=== PATIENT | male | born 1955 | race Caucasian/White ===

== ENCOUNTER → 2016-06-19 | Outpatient (CLI) | payer BC ==
[~2016-06-19] MED LIST: DEXT-10 PO; DEXT1CAP PO; GADAVIST IV PRN
--- NOTE | 2016-06-19 09:12 | DIAGNOSTIC IMAGING REPORT ---
MRI brain combination BRAIN COMBO FOR IAC CLINICAL HISTORY: LEFT ASYMMETRICAL HEARING LOSS hearing loss TECHNIQUE: MRI multi axial acquisition COMPARISON STUDY: None FINDINGS: Diffusion-weighted images show no evidence for an acute ischemic event. Signal characteristics of the cerebellar as well as cerebral hemispheres are unremarkable. Ventricular system is midline. Postcontrast images are considered negative for an enhancing lesion. Internal artery canals are symmetric. Sella and parasellar regions are unremarkable. IMPRESSION: Negative study Electronically signed by: Curtis Menezes M.D. 06/19/2016 9:11 AM Dictated Date/Time: 06/19/2016 9:07 AM
== END | disposition home or self-care (01) ==
LOC: C.OPENMRI 07:55
DX: H91.8X2 Other specified hearing loss, left ear (principal)

== ENCOUNTER → 2017-05-15 | Day surgery (SDC) | payer OTHER ==
[2017-05-10 15:25] LABS: BASO % 0.5 %; BASO ABS # 0.04 K/uL (0-0.2); EOS % 4.1 %; EOS ABS # 0.32 K/uL (0-0.5); HEMATOCRIT 45.6 % (42-52); HEMOGLOBIN 15.8 g/dL (14.0-18.0); IG# 0.03 K/uL (0.00-0.02); LYMPH % 31.3 %; LYMPH ABS # 2.44 K/uL (1.2-3.4); MEAN CELL VOLUME 89.6 fL (80-100); MEAN CORPUSCULAR HGB CONC 34.6 g/dl (32-36); MEAN PLATELET VOLUME 11.9 fL (7.4-10.4); MONO % 8.2 %; MONO ABS # 0.64 K/uL (0.11-0.59); NEUT % 55.5 %; NEUT ABS # 4.33 K/uL (1.4-6.5); PLATELET COUNT 166 K/uL (130-400); RED CELL DISTRIBUTION WIDTH CV 13.8 % (11.5-14.5); RED CELL DISTRIBUTION WIDTH SD 45.3 fL (36.4-46.3)
[2017-05-10 15:44] LABS: POTASSIUM 3.7 mmol/L (3.5-5.1)
[2017-05-11 07:34] VITALS: BMI 42.0
[2017-05-14 10:05] VITALS: Ht 180.3 cm; Wt 137.0 kg
--- NOTE | 2017-05-14 10:23 | PAT Medication Instructions ---
Service Date May 14, 2017. Current Home Medication List Fish Oil (Whiteford-3), 1 CAP PO QAM Indapamide (Lozol), 1.25 MG PO QAM Medication Instructions For Your Scheduled Surgery - Hold the following medications the morning of surgery: Fish Oil (Whiteford-3), 1 CAP PO QAM Indapamide (Lozol), 1.25 MG PO QAM If you have any questions please call us at [phone] or [phone] or [phone]
[2017-05-14 11:17] LABS: CALCIUM 9.8 mg/dl (8.5-10.1); CREATININE 0.95 mg/dl (0.60-1.40); POTASSIUM 3.7 mmol/L (3.5-5.1)
[~2017-05-15] VITALS: Ht 180.3 cm; Wt 137.0 kg
[~2017-05-15] MED LIST changes: +ATROPINE SULFATE 0.1 MG/ML 5ML SYR IV PRN; +BUPIVACAINE 0.5 % 5 MG/1 ML PF 10ML VIAL ONE; +CEFAZOLIN 3000MG IV PUSH 15 ML IV SCH; -DEXT-10 PO; -DEXT1CAP PO; +EpHEDrine SULFATE INJ 50 MG/ML AMP IV PRN; +FENTANYL CITRATE INJ 50 MCG/1 ML 2 ML VIAL ONE; -GADAVIST IV PRN; +HYDROmorphone INJ 1 MG/ML SYR IV PRN; +LACTATED RINGER'S 1000ML 1,000 ML IV SCH; +LIDOCAINE HCL 2% 2 ML VIAL (20MG/ML) ONE; +LZL/125 PO; +MIDAZOLAM HCL 1 MG/ML 2ML VIAL ONE; +OMEG10007 PO; +ONDANSETRON INJ 2 MG/ML 2 ML VIAL IV PRN; +ONDANSETRON INJ 2 MG/ML 2 ML VIAL ONE; +OXYCODONE/ACETAMINOPHEN 5-325 TAB PO PRN; +PROMETHAZINE HCL INJ 12.5 MG in SODIUM CHLORIDE 0.9% 50ML 50 ML IV PRN; +PROPOFOL IV EMULSION 10 MG/ML 20 ML VIAL IV ONE; +SODIUM CHLORIDE 0.9% 1000ML 1,000 ML IV SCH; +TRAM-10 PO
--- NOTE | 2017-05-15 08:36 | [facility] Post Operative Brief Note ---
Immediate Operative Summary Operative Date May 15, 2017. Pre-Operative Diagnosis Right knee bursitis and bone spur Post-Operative Diagnosis Same Procedure(s) Performed Right Knee Prepatellar Bursa And Bone Spur Excision Surgeon Dr. Bowser Spring Fitter Helper Surgeon(s) Sada Sheets PA-C Estimated Blood Loss 5ml Findings Consistent with Post-Op Diagnosis Specimens A. specimen from the anterior patella right knee Anesthesia Type General Disposition Disposition: Recovery Room / PACU
--- NOTE | 2017-05-15 08:43 | Discharge Instructions-SurgCtr ---
Discharge Instructions Date of Service May 15, 2017. Visit Reason for Visit: Right Knee Prepatellar Bursa And Bone Spur Discharge Discharge Diagnosis / Problem: SAME ABOVE Discharge Goals Goal(s): Decrease discomfort, Improve function Activity Recommendations Activity Limitations: as noted below Lifting Limitations: gradually increase as tolerated Exercise/Sports Limitations: until after follow-up appointment Shower/Bathe: keep incision dry Anesthesia . Post Anesthesia Instructions: If you have had General Anesthesia or IV Sedation: * Do not drive today. * Resume driving when surgeon permits. * Do not make important decisions or sign legal documents today. * Call surgeon for: 1. Temperature elevations greater than 101 degrees F. 2. Uncontrollable pain. 3. Excessive bleeding. 4. Persistent nausea and vomiting. 5. Medication intolerance (nausea, vomiting or rash). * For nausea and vomiting use only clear liquids such as: tea, soda, bouillon until nausea subsides, then gradually increase diet as tolerated. * If you have any concerns or questions, call your surgeon's office. If physician is unavailable and it is an emergency, call 911 or go to the nearest emergency room. . Instructions / Follow-Up Instructions / Follow-Up MEDICATIONS: * Resume previous medications unless instructed otherwise by your surgeon. * Always take pain medication on a full stomach or with food to avoid upset stomach. * Do not drink alcohol or drive while taking narcotics. * Ibuprofen or Tylenol may be taken if narcotic not needed. SPECIAL CARE INSTRUCTIONS: __ None _X_ Keep extremity elevated and iced x 48 hours; apply ice 20-30 minutes 8-10 times/day. May remove at night. __ Crutches __ May discard when able __ Brace/Post-op shoe __ 24 hrs/day __ Remove at night _X_ Dressing _X_ Maintain until seen in office, may shower with plastic over site __ Remove dressings in 24-48 hours and then may shower __ Cover incisions with band-aids after showering __ Do not remove steri-strips Call physician if chills or temperature rises above 102 degrees or pain unrelieved by prescribed pain medications. Office [phone] Diet Recommendations Home Diet: resume previous diet Procedures Procedures Performed: Right Knee Prepatellar Bursa And Bone Spur Excision Pending Studies Studies pending at discharge: yes List of pending studies: TISSUE SAMPLE ANTERIOR KNEE Medical Emergencies . Who to Call and When: Medical Emergencies: If at any time you feel your situation is an emergency, please call 911 immediately. . Non-Emergent Contact Non-Emergency issues call your: Primary Care Provider . . "Provider Documentation" section prepared by Nemesio Sheets. .
[2017-05-15] MEDS: FENTANYL CITRATE INJ 50 MCG/1 ML 2 ML VIAL IV PRN ×3 (08:50→09:12)
--- NOTE | 2017-05-15 09:27 | OPERATIVE REPORT ---
DATE OF OPERATION: 05/15/2017 PREOPERATIVE DIAGNOSIS: Prepatellar bursitis with bone/soft tissue mass anterior aspect patella. FINAL DIAGNOSIS: Same pending path report. SURGERIES: Excision of prepatellar bursa and soft tissue mass anterior aspect right knee. SURGEON: Dr. Bowser. MANAGEMENT EXPERT: Nemesio Sheets PA-C. ANESTHESIOLOGIST: Bertha. ANESTHESIA: General. DRAINS: None. COMPLICATION: None. CONDITION: The patient tolerated the procedure well and returned to recovery in apparent satisfactory condition. INDICATIONS FOR SURGERY: Maximus is a 61-year-old male who has had prepatellar bursitis with a hard mass on the anterior aspect of his patella on x-ray. It looks to be calcium filled. It is painful, cannot kneel down, elected to have it removed. Procedure, expected outcomes, side effects were all explained in detail. PROCEDURE IN DETAIL: The patient was taken to the OR at which time he was placed supine on the table and put to sleep by anesthesia department. Examination of the right knee was performed, ligamentous rodriguez was stable. Went ahead and prepped and draped in usual sterile fashion. Began arthroscopic examination anteromedial and anterolateral portals. Skin incision was marked. Leg then was exsanguinated. An incision was made on the anterior aspect of his knee. We dissected down and removed the bursa sac. A large area of chalky material, almost either a cholesteatoma or gouty tophi was encountered. There was fluid around it. We excised and removed as much of this material as we could. The wound then was copiously irrigated. Skin was closed with interrupted 2-0 Vicryl suture. Skin shu were used on the skin edges. Placed a dressing of Xeroform, 4 x 4's, ABD, Sof-Rol and Severo bandage after Marcaine with epinephrine was placed in the skin edges. FINAL DIAGNOSIS: Will depend on path report from the pathologist. I attest to the content of the Intraoperative Record and any orders documented therein. Any exception s are noted below.
[2017-05-15 10:13] VITALS: BP 133/85; PULSE 70; TEMP 36.6; O2SAT 97
--- NOTE | 2017-05-15 10:24 | Anesthesia Progress Nt - [facility] ---
Anesthesia Post Op Note Date & Time May 15, 2017 at 10:23 Vital Signs Pain Intensity: 2 Vital Signs Past 12 Hours Date Time Temp Pulse Resp B/P (MAP) Pulse Ox O2 Delivery O2 Flow Rate FiO2 05/15/17 10:13 70 16 133/85 (101) 97 Room Air 05/15/17 09:50 65 16 124/77 (93) 97 Room Air 05/15/17 09:41 122/90 05/15/17 09:37 64 14 97 05/15/17 09:37 61 14 05/15/17 09:36 114/83 05/15/17 09:32 63 17 05/15/17 09:32 63 17 98 05/15/17 09:32 36.5 65 16 156/96 94 Room Air 05/15/17 09:31 156/96 05/15/17 09:27 71 16 87 05/15/17 09:27 73 16 05/15/17 09:26 125/86 05/15/17 09:22 61 19 05/15/17 09:22 62 19 98 05/15/17 09:21 132/78 05/15/17 09:17 58 11 98 05/15/17 09:17 58 11 05/15/17 09:16 123/89 05/15/17 09:12 73 17 05/15/17 09:12 73 17 139/92 92 05/15/17 09:07 66 20 95 05/15/17 09:07 69 20 05/15/17 09:06 68 19 05/15/17 09:06 71 19 117/80 94 05/15/17 09:02 137/96 05/15/17 09:01 73 18 97 05/15/17 09:01 71 18 05/15/17 08:56 70 16 144/95 96 05/15/17 08:56 71 16 05/15/17 08:51 75 26 05/15/17 08:51 75 26 154/89 96 05/15/17 08:46 77 17 149/97 98 05/15/17 08:46 79 17 05/15/17 08:42 148/87 05/15/17 08:41 36.3 83 16 148/87 96 Diffusion Mask 6 05/15/17 08:41 83 05/15/17 08:41 83 96 05/15/17 07:10 36.6 81 16 128/85 (99) 96 Room Air Notes Mental Status: alert / awake / arousable, participated in evaluation Pt Amnestic to Procedure: Yes Nausea / Vomiting: adequately controlled Pain: adequately controlled Airway Patency, RR, SpO2: stable & adequate BP & HR: stable & adequate Hydration State: stable & adequate Anesthetic Complications: no major complications apparent
== END | disposition home or self-care (01) ==
LOC: X.SURG 06:55
PROVIDERS: ATTEND Orthopaedic Surgery
DX: M70.41 Prepatellar bursitis, right knee (principal); I10 Essential (primary) hypertension; M1A.9XX1 Chronic gout, unspecified, with tophus (tophi)

== ENCOUNTER → 2017-06-04 | Outpatient (CLI) | payer OTHER ==
[~2017-06-04] MED LIST changes: -ATROPINE SULFATE 0.1 MG/ML 5ML SYR IV PRN; -BUPIVACAINE 0.5 % 5 MG/1 ML PF 10ML VIAL ONE; -CEFAZOLIN 3000MG IV PUSH 15 ML IV SCH; -EpHEDrine SULFATE INJ 50 MG/ML AMP IV PRN; -FENTANYL CITRATE INJ 50 MCG/1 ML 2 ML VIAL ONE; -HYDROmorphone INJ 1 MG/ML SYR IV PRN; -LACTATED RINGER'S 1000ML 1,000 ML IV SCH; -LIDOCAINE HCL 2% 2 ML VIAL (20MG/ML) ONE; -MIDAZOLAM HCL 1 MG/ML 2ML VIAL ONE; -ONDANSETRON INJ 2 MG/ML 2 ML VIAL IV PRN; -ONDANSETRON INJ 2 MG/ML 2 ML VIAL ONE; -OXYCODONE/ACETAMINOPHEN 5-325 TAB PO PRN; -PROMETHAZINE HCL INJ 12.5 MG in SODIUM CHLORIDE 0.9% 50ML 50 ML IV PRN; -PROPOFOL IV EMULSION 10 MG/ML 20 ML VIAL IV ONE; -SODIUM CHLORIDE 0.9% 1000ML 1,000 ML IV SCH
[2017-06-04 15:50] LABS: ALBUMIN 3.6 gm/dl (3.4-5.0); ALKALINE PHOSPHATASE 77 U/L (45-117); ALT/SGPT 29 U/L (12-78); AST/SGOT 19 U/L (15-37); BLOOD UREA NITROGEN 18 mg/dl (7-18); CALCIUM 9.3 mg/dl (8.5-10.1); CARBON DIOXIDE 28 mmol/L (21-32); CREATININE 1.02 mg/dl (0.60-1.40); GLUCOSE 121 mg/dl (70-99); POTASSIUM 3.4 mmol/L (3.5-5.1); SODIUM 139 mmol/L (136-145); TOTAL PROTEIN 7.4 gm/dl (6.4-8.2)
== END | disposition home or self-care (01) ==
LOC: C.LAB1850 14:25
PROVIDERS: ATTEND Orthopaedic Surgery
DX: M25.50 Pain in unspecified joint (principal); M10.9 Gout, unspecified

== ENCOUNTER → 2017-06-06 | Outpatient (CLI) | payer OTHER | LOC: C.LAB1850 07:07 | PROVIDERS: ATTEND Internal Medicine Pulmonary Disease | DX: E78.5 Hyperlipidemia, unspecified (principal) ==

== ENCOUNTER → 2017-06-22 | Outpatient (CLI) | payer OTHER ==
--- NOTE | 2017-06-22 14:03 | DIAGNOSTIC IMAGING REPORT ---
KUB CLINICAL HISTORY: R10.9 right flank pain COMPARISON STUDY: No previous studies for comparison. FINDINGS: There is no pathologic bowel dilatation. There is a left pelvic basin calcification which is felt to represent a phlebolith. Degenerative changes are present within the spine. No renal calculi are visualized. IMPRESSION: 1. No renal calculi identified 2. No evidence of pathologic bowel dilatation Electronically signed by: Sukhdev Quintero M.D. 06/22/2017 2:02 PM Dictated Date/Time: 06/22/2017 2:01 PM
== END | disposition home or self-care (01) ==
LOC: C.RAD1850 13:45
PROVIDERS: ATTEND Internal Medicine Rheumatology
DX: R10.9 Unspecified abdominal pain (principal)

== ENCOUNTER → 2017-08-27 | Outpatient (CLI) | payer OTHER | END | disposition home or self-care (01) | LOC: C.LAB1850 14:30 | PROVIDERS: ATTEND Internal Medicine Rheumatology | DX: E79.0 Hyperuricemia without signs of inflammatory arthritis and tophaceous disease (principal) ==

== ENCOUNTER → 2017-11-30 | Outpatient (CLI) | payer OTHER ==
[~2017-11-30] MED LIST changes: -TRAM-10 PO
== END | disposition home or self-care (01) ==
LOC: C.LAB1850 14:16
PROVIDERS: ATTEND Internal Medicine Rheumatology
DX: M1A.9XX0 Chronic gout, unspecified, without tophus (tophi) (principal); E79.0 Hyperuricemia without signs of inflammatory arthritis and tophaceous disease; R10.9 Unspecified abdominal pain

== ENCOUNTER 2025-04-06 11:33 | Observation (INO) ==
--- NOTE | 2025-04-06 11:57 | Emergency Department Note ---
Impression & Plan Chest pain, Shortness of breath ED Provider Note NAME: LYUBOV HE AGE: 69 SEX: M : 1955 ARRIVES VIA: Walk-In INFORMANT: Patient ED PROVIDER(S): Dennis Briones DO CHIEF COMPLAINT: Chest pain HPI: Patient is a 69-year-old male with a past medical history of prediabetes, hypertension who presents to the ER for chest pain. Has been on and off for the past 6 weeks. He notes that it feels like a pressure. Generally last for about 30 minutes. Can be with exertion or rest. Feels like he cannot take or get a full breath when it occurs. No belly pain, nausea, vomiting, or diarrhea. No dysuria, urgency, or frequency. ADDITIONAL HISTORY OBTAINED: Per HPI Chronic Medical/Social Conditions Affecting Care: Per HPI PAST MEDICAL HISTORY:See Below PAST SURGICAL HISTORY:See Below FAMILY HISTORY:See Below SOCIAL HISTORY:See Below HOME MEDICATIONS:See Below ALLERGIES:See Below VITALS:See Below PHYSICAL EXAMINATION: GENERAL: Sitting up in bed, alert, well appearing, well nourished, no distress, non-toxic EYE EXAM: normal conjunctiva. OROPHARYNX: no exudate, no erythema, lips, buccal mucosa, and tongue normal and mucous membranes are moist NECK: supple, no nuchal rigidity, no adenopathy, non-tender LUNGS: Clear to auscultation. Normal chest wall mechanics HEART: no murmurs, S1 normal and S2 normal ABDOMEN: abdomen soft, non-tender, normo-active bowel sounds, no masses, no rebound or guarding. BACK: Back is symmetrical on inspection and there is no deformity, no midline tenderness, no CVA tenderness. SKIN: no rashes and no bruising UPPER EXTREMITIES: upper extremities are grossly normal. LOWER EXTREMITIES: No pitting edema. Calves are equal bilaterally NEURO EXAM: Normal sensorium, cranial nerves II-XII grossly intact, normal speech, no gross weakness of arms, no gross weakness of legs. MEDICAL DECISION MAKING: Patient is a 69-year-old male who presents ER for above-stated complaint. IV was established and blood work was obtained. Labs show no significant leukocytosis or anemia. BMP along LFTs bilirubin was unremarkable. Troponin was negative. D-dimer was negative. Patient is a moderate risk consult and was discussed with the hospitalist for further evaluation management treatment. EKG was nondiagnostic. He was given aspirin. Updated at bedside. Consults/Care Managements Discussions: Per MDM Triage Nursing notes reviewed. Limited review of prior medical records performed Vital Signs: reviewed and remarkable for HTN Differential diagnosis: Cardiac ischemia, aortic dissection, pulmonary embolism, pneumothorax, pneumonia, pericarditis, myocarditis, esophageal rupture, GERD, cholecystitis, pancreatitis, musculoskeletal, as well as other pathologies. ER treatment provided: See below Diagnostics interpreted by me include EKG and cardiac monitoring as listed below: -Cardiac Monitoring: An order was placed for continuous cardiac monitoring. The monitor shows a rate of 70 with sinus rhythm. -ECG: Sinus bradycardia rate of 59 Left axis No PVCs QTc 388 -Laboratory studies:Interpreted by me as stated above in MDM and shown below. Imaging studies: Xrays: As interpreted by me: Portable AP upright 1 view of the chest shows no focal infiltrate CTs show: none Procedures:none Critical Care: None Past Med/Surg History Problem List (Updated 04/06/25 @ 17:00 by Dennis Briones DO) Shortness of breath (Acute) Chest pain (Acute) Chest pain Infection of prosthetic left knee joint Snoring Right knee DJD Trochanteric bursitis, right hip Pre-diabetes Morbid obesity due to excess calories Left knee DJD Rotator cuff syndrome of right shoulder Erectile dysfunction Metabolic syndrome Dyspnea Edema Dyslipidemia Gout Hypertension Allergic rhinitis Medical History (Updated 04/06/25 @ 17:00 by Dennis Briones DO) Internal carotid aneurysm History of internal jugular thrombosis (~10/2024) in s/o PICC line Basal cell carcinoma of skin Melanoma in situ Tubular adenoma Surgical History Status post left partial knee replacement S/P colonoscopy (~2017) H/O arthroscopic knee surgery H/O lumbar discectomy Family History Father Myocardial infarction Grandfather (Maternal) Myocardial infarction Grandfather (Paternal) Myocardial infarction Other Allergic rhinitis Coronary heart disease Hypertension Pulmonary fibrosis Denies family history of Ovarian cancer Prostate cancer Breast cancer Colorectal cancer Social History Smoking Status: Never smoker Second Hand Exposure: No; Do You Dip or Chew Tobacco: No; Hx Alcohol Use: Yes Alcohol type: beer and other Alcohol Intake Frequency: 2-4 x/Month Hx Substance Use: No Preferred Language: Spanish Communication Ability: Effective Behavioral Pediatrician Required: No Beliefs That Will Affect Care: None marital status: Current Living Situation: Spouse Current Living Situation Comment: Lives with current occupational status: retired Feels Safe at Home: Yes Childhood Exposure to Second-Hand Smoke: Yes Dental Care, Regularly: Yes Physical Activity Frequency: Other Physical Activity Frequency Comment: Very active lifestyle Seatbelt Use: always Sunscreen Use: Yes Assistive Devices: Glasses Allergies Allergies Allergy/AdvReac Type Severity Reaction Status Date / Time No Known Drug Allergies Allergy Verified 01/27/25 08:09 Home Meds Home Medications Medication Instructions Recorded Confirmed cholecalciferol (vitamin D3) 10 10 mcg PO DAILY 06/23/21 04/06/25 mcg (400 unit) tablet loratadine 10 mg tablet (Claritin) 10 mg PO DAILY PRN as needed 08/10/21 04/06/25 triamcinolone acetonide 55 mcg 2 spray intranasal DAILY PRN Nasal 08/10/21 04/06/25 nasal spray aerosol (Nasacort) Congestion acetaminophen 500 mg oral powder 500 mg PO Q6H PRN Pain 10/06/24 04/06/25 packet (Tylenol Extra Strength) rifampin 300 mg capsule 300 mg PO BID 10/06/24 04/06/25 amoxicillin 875 mg-potassium 1 tab PO BID 11/07/24 04/06/25 clavulanate 125 mg tablet biotin 5 mg tablet 5 mg PO DAILY 11/07/24 04/06/25 allopurinol 100 mg tablet 100 mg PO BID 04/06/25 04/06/25 indapamide 1.25 mg tablet 1.25 mg PO QAM 04/06/25 04/06/25 Previous Rx's Medication Instructions Recorded cyanocobalamin (vitamin B-12) 1,000 mcg PO DAILY #30 caps 02/23/22 1,000 mcg capsule sildenafil 50 mg tablet (Viagra) 50 mg PO DAILY PRN sexual activity 10/08/24 #20 tabs Results & Data (ED) Vital Signs Vital Signs - 24 hr 04/06/25 11:34 04/06/25 12:00 04/06/25 12:47 Temperature 36.6 C Temperature Source Temporal Artery Scan Pulse Rate 66 67 55 L Pulse Rate [Apical] Pulse Rhythm Regular Pulse Rhythm [Apical] Pulse Strength [Apical] Respiratory Rate 18 19 Respiratory Effort / Characteristics Non-Labored Spontaneous Respiratory Depth Normal Respiratory Pattern Blood Pressure 153/89 H Blood Pressure [Right Arm] Blood Pressure Mean 110 Blood Pressure Mean [Right Arm] Blood Pressure Position [Right Arm] Pulse Oximetry 95 93 Oxygen Delivery Method Room Air Room Air Sepsis Recent Fever Within 48 Hours No Sepsis New/Unexplained Change in Mental Status No Sepsis Action Taken by Nursing No Action Required 04/06/25 13:33 Temperature Temperature Source Pulse Rate Pulse Rate [Apical] 55 L Pulse Rhythm Pulse Rhythm [Apical] Regular Pulse Strength [Apical] Normal Respiratory Rate 17 Respiratory Effort / Characteristics Non-Labored Spontaneous Respiratory Depth Normal Respiratory Pattern Regular Blood Pressure Blood Pressure [Right Arm] 127/65 Blood Pressure Mean Blood Pressure Mean [Right Arm] 85 Blood Pressure Position [Right Arm] Sitting Pulse Oximetry 95 Oxygen Delivery Method Room Air Sepsis Recent Fever Within 48 Hours Sepsis New/Unexplained Change in Mental Status Sepsis Action Taken by Nursing Laboratory Data 04/06/25 11:50 04/06/25 14:36 Lab Results 04/06/25 04/06/25 Range/Units 11:50 12:54 WBC 5.77 (4.8-10.8) K/ul RBC 5.29 (4.70-6.10) M/uL Hgb 15.7 (14.0-18.0) g/dL Hct 46.3 (42.0-52.0) % MCV 87.5 (80.0-100.0) fL MCH 29.7 (25.0-34.0) pg MCHC 33.9 (32.0-36.0) g/dL RDW Std Deviation 43.8 (36.4-46.3) fL RDW Coeff of Matthew 13.8 (11.5-14.5) % Plt Count 170 (130-400) K/uL MPV 10.8 (9.4-12.4) fL Immature Gran % (Auto) 0.2 % Neut % (Auto) 56.9 % Lymph % (Auto) 29.6 % [place] % (Auto) 10.2 % Eos % (Auto) 2.4 % Baso % (Auto) 0.7 % Neut # (Auto) 3.28 (1.40-6.50) K/uL Lymph # (Auto) 1.71 (1.20-3.40) K/uL [place] # (Auto) 0.59 (0.11-0.59) K/uL Eos # (Auto) 0.14 (0.00-0.50) K/uL Baso # (Auto) 0.04 (0.00-0.20) K/uL Immature Gran # (Auto) 0.01 (0.01-0.20) K/uL D-Dimer Cancelled 230 Sodium 140 (136-145) mmol/L Potassium TNP Chloride 107 (98-107) mmol/L Carbon Dioxide 26 (21-32) mmol/L Anion Gap 7 (3-11) BUN 21 (6-23) mg/dl Creatinine 0.99 (0.6-1.4) mg/dl Est Cr Clr Drug Dosing 95.7 ml/min eGFR 81.95 BUN/Creatinine Ratio 21.2 H (10-20) Glucose 82 (70-99(Fasting)) mg/dl Calcium 9.4 (8.6-10.3) mg/dl Total Bilirubin 0.6 (0.2-1.0) mg/dl AST TNP ALT 15 (7-52) U/L Alkaline Phosphatase 65 (34-104) U/L Troponin I High Sens 3.1 (0-20) pg/ml Total Protein 7.1 (6.0-8.3) gm/dl Albumin 4.3 (3.4-5.0) gm/dl Globulin 2.8 (2.5-4.0) gm/dl Albumin/Globulin Ratio 1.5 (0.9-2) Lipase 31 (11-82) U/L Administered Medications Atorvastatin Calcium (Atorvastatin 40 Mg Tab) 40 mg PO QAM MATTHEW Stop: 05/06/25 15:22 Last Admin: 04/06/25 16:43 Dose: 40 mg Documented By: agw Heparin Sodium (Porcine) (Heparin Sod 5,000 Unit/0.5 Ml Vial) 5,000 units SQ Q8 MATTHEW Stop: 05/06/25 13:59 Last Admin: 04/06/25 14:31 Dose: 5,000 units Documented By: MPD Discontinued Medications Aspirin (Aspirin Chew 324 Mg) 324 mg PO NOW STA Stop: 04/06/25 11:56 Last Admin: 04/06/25 12:00 Dose: 324 mg Documented By: GUADALUPE Imaging Data Radiologist's Impression: Chest X-Ray 04/06/25 11:40 XR chest 1V portable CLINICAL HISTORY: Chest pain, nonspecific COMPARISON STUDY: Chest radiograph May 02, 2023. FINDINGS: Lung volumes are normal. Lungs are clear. There is no pneumothorax or pleural effusion. Cardiac size is normal. Tortuosity of the descending thoracic aorta is unchanged. There is no evidence for pulmonary edema. IMPRESSION: No acute cardiopulmonary findings. No change in appearance of the chest. ACT 112: Negative or not required by law. Electronically signed by: Demario Segovia M.D. 04/06/2025 12:46 PM Discharge Plan Visit Data Chief Complaint: Cardiac Assessment Stated Complaint: CHEST PAIN ED Provider: Dennis Briones Discharge Problem: Chest pain, Shortness of breath Patient Disposition: Admitted As Inpatient Condition: Fair Discharge Instructions Interventions: ED Discharge Assessment Last Done: 04/06/25 16:29 Discharge Problem: Chest pain Qualifiers: Chest pain type: unspecified Qualified Code(s): R07.9 - Chest pain, unspecified
[2025-04-06] MEDS: ASPIRIN CHEW 324 MG PO STA (12:00)
[2025-04-06 12:10] LABS: Hematocrit (blood only) 46.3 % (42.0-52.0); Hemoglobin 15.7 g/dL (14.0-18.0); Immature Granulocytes # (auto) 0.01 K/uL (0.01-0.20); Immature Granulocytes % (auto) 0.2 %; Mean Corpuscular Hemoglobin 29.7 pg (25.0-34.0); Mean Corpuscular Volume 87.5 fL (80.0-100.0); Platelet Count 170 K/uL (130-400); RDW Standard Deviation 43.8 fL (36.4-46.3); Red Blood Count 5.29 M/uL (4.70-6.10); White Blood Count 5.77 K/ul (4.8-10.8)
--- NOTE | 2025-04-06 12:48 | XRay Report ---
XR chest 1V portable CLINICAL HISTORY: Chest pain, nonspecific COMPARISON STUDY: Chest radiograph May 02, 2023. FINDINGS: Lung volumes are normal. Lungs are clear. There is no pneumothorax or pleural effusion. Car diac size is normal. Tortuosity of the descending thoracic aorta is unchanged. There is no evidence f or pulmonary edema. IMPRESSION: No acute cardiopulmonary findings. No change in appearance of the chest. ACT 112: Negative or not required by law. Electronically signed by: Demario Segovia M.D. 04/06/2025 12:46 PM
[2025-04-06 13:10] LABS: Alanine Aminotransferase 15 U/L (7-52); Albumin Globulin Ratio 1.5 (0.9-2); Albumin Level 4.3 gm/dl (3.4-5.0); Alkaline Phosphatase 65 U/L (34-104); Anion Gap 7 (3-11); Bilirubin,Total 0.6 mg/dl (0.2-1.0); Blood Urea Nitrogen 21 mg/dl (6-23); Calcium 9.4 mg/dl (8.6-10.3); Carbon Dioxide 26 mmol/L (21-32); Chloride 107 mmol/L (98-107); Creatinine Clr Calc Pharmacy 95.7 ml/min; Globulin 2.8 gm/dl (2.5-4.0); Glucose 82 mg/dl (70-99(Fasting)); Lipase 31 U/L (11-82); Sodium 140 mmol/L (136-145); Total Protein 7.1 gm/dl (6.0-8.3)
[2025-04-06] MEDS ORDERED: LORATADINE 10 MG TAB PO PRN (13:38)
[2025-04-06] MEDS ORDERED: ACETAMINOPHEN 325 MG TAB PO PRN (13:40)
--- NOTE | 2025-04-06 13:52 | History & Physical Report ---
Date of Service April 06, 2025 Assessment & Plan (1) Chest pain: Plan: -tele -troponin x3 -asa, metoprolol, statin -echo -cardiology consutled (2) Hypertension: Plan: -metoprolol Plan -heparin SQ for DVT px History of Present Illness Chief Complaint: Chest pain Primary Care Provider: Radha Vang MD Pt is a 69 y/o male with pmh of HTN who presents with chest pain. The pain has been intermittent for the past 6 weeks. Pt also feels SOB during the episodes. In the ER his EKG was sinus bradycardia at 59bpm, and his troponin were negative. His CXR showed no acute disease. Pt is being admitted for further evaluation of his chest pain with echo and cardiology consult. Allergies Allergy/AdvReac Type Severity Reaction Status Date / Time No Known Drug Allergies Allergy Verified 01/27/25 08:09 Home Medications Medication Instructions Recorded Confirmed Type cholecalciferol (vitamin D3) 10 10 mcg PO DAILY 06/23/21 04/06/25 History mcg (400 unit) tablet loratadine 10 mg tablet (Claritin) 10 mg PO DAILY PRN as needed 08/10/21 04/06/25 History triamcinolone acetonide 55 mcg 2 spray intranasal DAILY PRN Nasal 08/10/21 04/06/25 History nasal spray aerosol (Nasacort) Congestion cyanocobalamin (vitamin B-12) 1,000 mcg PO DAILY #30 caps 02/23/22 04/06/25 Rx 1,000 mcg capsule acetaminophen 500 mg oral powder 500 mg PO Q6H PRN Pain 10/06/24 04/06/25 History packet (Tylenol Extra Strength) rifampin 300 mg capsule 300 mg PO BID 10/06/24 04/06/25 History sildenafil 50 mg tablet (Viagra) 50 mg PO DAILY PRN sexual activity 10/08/24 04/06/25 Rx #20 tabs amoxicillin 875 mg-potassium 1 tab PO BID 11/07/24 04/06/25 History clavulanate 125 mg tablet biotin 5 mg tablet 5 mg PO DAILY 11/07/24 04/06/25 History allopurinol 100 mg tablet 100 mg PO BID 04/06/25 04/06/25 History indapamide 1.25 mg tablet 1.25 mg PO QAM 04/06/25 04/06/25 History Past Med/Surg History Problem List (Updated 04/06/25 @ 13:51 by Andrew Sheets MD) Chest pain Infection of prosthetic left knee joint Snoring Right knee DJD Trochanteric bursitis, right hip Pre-diabetes Morbid obesity due to excess calories Left knee DJD Rotator cuff syndrome of right shoulder Erectile dysfunction Metabolic syndrome Dyspnea Edema Dyslipidemia Gout Hypertension Allergic rhinitis Medical History (Updated 04/06/25 @ 13:51 by Andrew Sheets MD) Internal carotid aneurysm History of internal jugular thrombosis (~10/2024) in s/o PICC line Basal cell carcinoma of skin Melanoma in situ Tubular adenoma Surgical History Status post left partial knee replacement S/P colonoscopy (~2017) H/O arthroscopic knee surgery H/O lumbar discectomy Family History Father Myocardial infarction Grandfather (Maternal) Myocardial infarction Grandfather (Paternal) Myocardial infarction Other Allergic rhinitis Coronary heart disease Hypertension Pulmonary fibrosis Denies family history of Ovarian cancer Prostate cancer Breast cancer Colorectal cancer Social History Smoking Status: Never smoker Second Hand Exposure: No; Do You Dip or Chew Tobacco: No; Hx Alcohol Use: Yes (Socially) Alcohol Intake Frequency: 2-4 x/Month Hx Substance Use: No Preferred Language: Sami marital status: Current Living Situation: Spouse current occupational status: retired Feels Safe at Home: Yes Childhood Exposure to Second-Hand Smoke: Yes Dental Care, Regularly: Yes Physical Activity Frequency: Other Physical Activity Frequency Comment: Very active lifestyle Seatbelt Use: always Sunscreen Use: Yes Review of Systems Review of Systems: CONST: Negative for fever, body aches and chills. HENT: Negative for neck pain/stiffness, headache, congestion, sore throat, swelling. EYES: Negative for discharge/pain or vision changes. RESP: Negative for cough/hemoptysis and shortness of breath. CV: + chest pain, difficulty breathing, palpitations. ABD: Negative pain, nausea, vomiting. : Negative increase frequency, dysuria, blood in urine or stool. MUSC: Negative for muscle aches, edema. SKIN: Negative rash, lesions/sores. NEURO: Negative headache, dizziness, weakness. Physical Exam Physical Exam: GENERAL APPEARANCE NAD, activity normal for age, well developed/ well nourished, no cyanosis, pallor, or diaphoresis. EYES lids/conjunctiva normal. EARS/NOSE/THROAT Mucous membranes moist, nares normal, lips/teeth normal uvula midline without oral pharyngeal erythema, exudat e or swelling TMs normal bilaterally. No lymphangitis/lymphedema. HEAD/NECK normocephalic atraumatic, no facial trauma, neck is supple. RESPIRATORY respiratory effort normal, speaks in full sentences, no tripod position, no accessory muscle use. Lungs clear to auscultation without rhonchi, wheezes, rales CARDIAC Regular rate and rhythm, no edema. ABDOMINAL Soft, ND/NT. No evidence of fluid wave. No pulsatile masses on exam, rebound tenderness, Addison sign or pain over Mcburney's point. MUSCLES/EXTREMITIES No abnormal range of motion, no swelling. SKIN Warm, pink and dry. No rashes, dermatoses, petechiae or lesions. NEUROLOGICAL Speech is clear and appropriate. Normal level of consciousness. Gait and coordination are normal. 5/5 strength in all extremities. PSYCH Normal mood and affect. Judgement/competence is appropriate Results & Data Results & Data Vital Signs (Past 12 Hours) Vital Signs Temp Pulse Pulse Resp BP BP Pulse Ox 04/06/25 13:33 55 L 17 127/65 95 04/06/25 12:47 55 L 04/06/25 12:00 67 19 93 04/06/25 11:34 36.6 C 66 18 153/89 H 95 O2 Del Method 04/06/25 13:33 Room Air 04/06/25 12:47 04/06/25 12:00 Room Air 04/06/25 11:34 Room Air PG Care Time/CCT Total # of Minutes Spent Total Time Spent with Patient: Total time spent is greater than 50% in coordination of care (as documented) at patient's floor/unit and/or counseling patient: Coding Level of Care Code 65102 INT INP/OBS CARE 2/55MIN Diagnoses Chest pain R07.9 Hypertension I10
[2025-04-06] MEDS: HEPARIN SOD 5,000 UNIT/0.5 ML VIAL SQ SCH (14:31)
[2025-04-06 15:08] LABS: Potassium 3.9 mmol/L (3.5-5.1)
--- NOTE | 2025-04-06 15:49 | XCELERA ---
[id number] [id number]
--- NOTE | 2025-04-06 15:51 | Cardiology Consultation ---
Date of Consultation April 06, 2025 Assessment & Plan (1) Atypical chest pain: (2) Hypertension: (3) Dyslipidemia: Plan ASSESSMENT/PLAN: 1. Atypical chest pain: Right sided chest pain not triggered by exertion, despite active lifestyle and recent hunting. Trend troponin levels. Repeat ECG. Likely pursue stress echo tomorrow if troponin levels remain unremarkable. Risk factor modification. Other, noncardiac chest pain etiologies to be evaluated per primary hospitalist service. D-dimer negative. 2. Hypertension: Blood pressure mostly hypertensive but typically better controlled at other posted values in the chart. If blood pressure remains elevated, titrate antihypertensive regimen. 3. Dyslipidemia: Elevated 10-year cardiovascular risk. Recommend statin therapy. Mediterranean diet. 4. Disposition: Probable stress echo tomorrow with ongoing risk factor modification in the outpatient setting with his PCP. Cardiology will continue to follow. Care communicated with primary hospitalist, Dr. Sheets. Today's visit was 50 minutes in duration, which includes [id number] time, counseling patient, cording care, reviewing records, and completing documentation. Thank you for allowing me to participate in the care of your patient. Please call for any other questions or concerns. Sincerely, Luis Mcgraw M.D. History of Present Illness Reason for Consultation: chest pain Requesting Physician: Andrew Sheets MD Attending Physician: Andrew Sheets MD History of Present Illness Mr. Paris is a very pleasant 69-year-old gentleman with a history significant for hypertension and prediabetes. He has been seen by Dr. Ballesteros in the outpatient cardiology setting in the past. He was admitted on 04/06/2025 with chest pain. While hunting in [facility] [place] [facility] over the past 3 weeks, he has been experiencing a right sided chest discomfort as though he pulled a muscle. It intermittently occurs without trigger. It is nonexertional and he was able to walk through the [place] incl[place] without triggering the chest discomfort. When it occurs it typically lasts a few minutes but can last up to 30 minutes in duration before resolving spontaneously. There was no radiation of the pain and no associated shortness of breath. His last episode of pain was this morning for approximately 15 minutes after waking up between 6 AM and 6:30 AM. It occurred while sitting and drinking coffee. In general, he states that food/fluids do not trigger the chest discomfort. He has chronic left lower extremity swelling since knee surgery and infection. He is on antibiotics since August 2024 until May 05, 2025. The leg swelling improves by morning after leg is elevated. He denies syncope, near syncope, palpitations, melena, hematochezia, hematuria, nausea, vomiting, diarrhea, or fever. Review of systems: As above. Family history: Father had CABG near the age of 60. Social history: Denies tobacco. Occasional alcohol. Lives at home with his . Has 2 children. Grandchildren. 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 He was unaccompanied. Allergies Allergy/AdvReac Type Severity Reaction Status Date / Time No Known Drug Allergies Allergy Verified 01/27/25 08:09 Home Medications Medication Instructions Recorded Confirmed Type cholecalciferol (vitamin D3) 10 10 mcg PO DAILY 06/23/21 04/06/25 History mcg (400 unit) tablet loratadine 10 mg tablet (Claritin) 10 mg PO DAILY PRN as needed 08/10/21 04/06/25 History triamcinolone acetonide 55 mcg 2 spray intranasal DAILY PRN Nasal 08/10/21 04/06/25 History nasal spray aerosol (Nasacort) Congestion cyanocobalamin (vitamin B-12) 1,000 mcg PO DAILY #30 caps 02/23/22 04/06/25 Rx 1,000 mcg capsule acetaminophen 500 mg oral powder 500 mg PO Q6H PRN Pain 10/06/24 04/06/25 History packet (Tylenol Extra Strength) rifampin 300 mg capsule 300 mg PO BID 10/06/24 04/06/25 History sildenafil 50 mg tablet (Viagra) 50 mg PO DAILY PRN sexual activity 10/08/24 04/06/25 Rx #20 tabs amoxicillin 875 mg-potassium 1 tab PO BID 11/07/24 04/06/25 History clavulanate 125 mg tablet biotin 5 mg tablet 5 mg PO DAILY 11/07/24 04/06/25 History allopurinol 100 mg tablet 100 mg PO BID 04/06/25 04/06/25 History indapamide 1.25 mg tablet 1.25 mg PO QAM 04/06/25 04/06/25 History Problem List (Updated 04/06/25 @ 18:15 by Luca Mcgraw MD) Atypical chest pain Shortness of breath (Acute) Chest pain (Acute) Chest pain Infection of prosthetic left knee joint Snoring Right knee DJD Trochanteric bursitis, right hip Pre-diabetes Morbid obesity due to excess calories Left knee DJD Rotator cuff syndrome of right shoulder Erectile dysfunction Metabolic syndrome Dyspnea Edema Dyslipidemia Gout Hypertension Allergic rhinitis Patient History Medical History Internal carotid aneurysm History of internal jugular thrombosis (~10/2024) in s/o PICC line Basal cell carcinoma of skin Melanoma in situ Tubular adenoma Surgical History Status post left partial knee replacement S/P colonoscopy (~2017) H/O arthroscopic knee surgery H/O lumbar discectomy Family History Father Myocardial infarction Grandfather (Maternal) Myocardial infarction Grandfather (Paternal) Myocardial infarction Other Allergic rhinitis Coronary heart disease Hypertension Pulmonary fibrosis Denies family history of Ovarian cancer Prostate cancer Breast cancer Colorectal cancer Social History Smoking Status: Never smoker Second Hand Exposure: No; Do You Dip or Chew Tobacco: No; Hx Alcohol Use: Yes Alcohol type: beer and other Alcohol Intake Frequency: 2-4 x/Month Hx Substance Use: No Preferred Language: Georgian Communication Ability: Effective Athletic Shoe Designer Required: No Beliefs That Will Affect Care: None marital status: Current Living Situation: Spouse Current Living Situation Comment: Lives with current occupational status: retired Feels Safe at Home: Yes Childhood Exposure to Second-Hand Smoke: Yes Dental Care, Regularly: Yes Physical Activity Frequency: Other Physical Activity Frequency Comment: Very active lifestyle Seatbelt Use: always Sunscreen Use: Yes Assistive Devices: Glasses Physical Exam Physical Exam: Gen.: No acute distress. Alert and oriented. HEENT: Anicteric sclera. Neck: No JVD. No bruits. Normal carotid upstrokes bilaterally. Cardiac: Regular. Normal S1-S2. No murmurs, rubs, or gallops. Pulmonary: Clear to auscultation bilaterally without wheezes, rales, or rhonchi. Abdomen: Soft, nontender, nondistended, with normoactive bowel sounds. No bruits noted. Extremities: 2+ radial pulses bilaterally. 2+ posterior tibialis pulses bilaterally. Trace left lower extremity pitting edema. No cyanosis. Chest: Nontender to palpation. Results & Data Vital Signs (Past 12 Hours) Vital Signs Temp Pulse Pulse Resp BP BP Pulse Ox 04/06/25 13:33 55 L 17 127/65 95 04/06/25 12:47 55 L 04/06/25 12:00 67 19 93 04/06/25 11:34 36.6 C 66 18 153/89 H 95 O2 Del Method 04/06/25 13:33 Room Air 04/06/25 12:47 04/06/25 12:00 Room Air 04/06/25 11:34 Room Air Laboratory Results Laboratory Results - last 24 hr 04/06/25 04/06/25 04/06/25 11:50 12:54 14:36 WBC 5.77 RBC 5.29 Hgb 15.7 Hct 46.3 MCV 87.5 MCH 29.7 MCHC 33.9 RDW Std Deviation 43.8 RDW Coeff of Matthew 13.8 Plt Count 170 MPV 10.8 Immature Gran % (Auto) 0.2 Neut % (Auto) 56.9 Lymph % (Auto) 29.6 [place] % (Auto) 10.2 Eos % (Auto) 2.4 Baso % (Auto) 0.7 Neut # (Auto) 3.28 Lymph # (Auto) 1.71 [place] # (Auto) 0.59 Eos # (Auto) 0.14 Baso # (Auto) 0.04 Immature Gran # (Auto) 0.01 D-Dimer Cancelled 230 Sodium 140 Potassium TNP 3.9 Chloride 107 Carbon Dioxide 26 Anion Gap 7 BUN 21 Creatinine 0.99 Est Cr Clr Drug Dosing 95.7 eGFR 81.95 BUN/Creatinine Ratio 21.2 H Glucose 82 Calcium 9.4 Total Bilirubin 0.6 AST TNP 15 ALT 15 Alkaline Phosphatase 65 Troponin I High Sens 3.1 Total Protein 7.1 Albumin 4.3 Globulin 2.8 Albumin/Globulin Ratio 1.5 Lipase 31 Diagnostic Findings ECHO 04/06/25: 1. Normal left ventricular size and systolic function. EF 60-65%. No regional wall motion abnormalities. Severe concentric left ventricular hypertrophy. 2. Trace aortic regurgitation. 3. Technically difficult study, enhanced with IV Definity. Labs reviewed and notable for normal high-sensitivity troponin x 1, normal potassium, normal renal function, normal transaminase levels, normal blood co unts. Normal D-dimer. ECG personally reviewed 04/06/2025: Sinus bradycardia 59 bpm. Septal infarct. History and physical report reviewed. Chest x-ray report reviewed from 04/06/2025: No acute findings per radiology. Outpatient cardiology note reviewed from 02/18/2021. Medications Administered Current Inpatient Medications Acetaminophen (Acetaminophen 325 Mg Tab) 650 mg PO Q4H PRN PRN Reason: pain/fever Stop: 05/06/25 13:39 Allopurinol (Allopurinol 100 Mg Tab) 100 mg PO BID [facility] Stop: 05/06/25 20:59 Aspirin (Aspirin 81 Mg Ectab) 81 mg PO DAILY [facility] Stop: 05/07/25 08:59 Atorvastatin Calcium (Atorvastatin 40 Mg Tab) 40 mg PO QAM [facility] Stop: 05/06/25 15:22 Cyanocobalamin (Cyanocobalamin (B-12) 500 Mcg Tablet) 1,000 mcg PO DAILY [facility] Stop: 05/07/25 08:59 Heparin Sodium (Porcine) (Heparin Sod 5,000 Unit/0.5 Ml Vial) 5,000 units SQ Q8 [facility] Stop: 05/06/25 13:59 Last Admin: 04/06/25 14:31 Dose: 5,000 units Indapamide (Indapamide 1.25 Mg Tab) 1.25 mg PO DAILY [facility] Stop: 05/07/25 08:59 Loratadine (Loratadine 10 Mg Tab) 10 mg PO DAILY PRN PRN Reason: as needed Stop: 05/06/25 13:37 Metoprolol Tartrate (Metoprolol Tartrate 25 Mg Tab) 25 mg PO BID [facility] Stop: 05/06/25 20:59 PG Care Time/CCT Total # of Minutes Spent Total Time Spent with Patient: Total time spent is greater than 50% in coordination of care (as documented) at patient's floor/unit and/or counseling patient: Coding Level of Care Code 18180 INT INP/OBS CARE 2/55MIN Diagnoses Atypical chest pain R07.89 Hypertension I10 Dyslipidemia E78.5 Time Spent (min) 50
[2025-04-06] MEDS: ATORVASTATIN 40 MG TAB PO SCH (16:43)
[2025-04-06 19:45] VITALS: RESP 16
[2025-04-06] MEDS: AMOXICILLIN/CLAVULANATE 875 MG TAB PO SCH (22:02)
[2025-04-06] MEDS: METOPROLOL TARTRATE 25 MG TAB PO SCH (22:03)
[2025-04-07] MEDS: DOBUTamine HCL 12.5 MG/ML 20 ML VIAL IV ONE (09:45)
[2025-04-07] MEDS: METOPROLOL TARTRATE 1 MG/ML VIAL IV ONE (09:45)
--- NOTE | 2025-04-07 09:50 | Hospitalist Progress Note ---
Date of Service April 07, 2025 Assessment & Plan (1) Chest pain: Plan: -tele -troponin x3 -asa, metoprolol, statin -echo -cardiology consult appreciated -awaiting stress echo this am (2) Hypertension: Plan: -metoprolol Plan -heparin SQ for DVT px Admission and Anticipated Discharge Date Admission Date: April 06, 2025 Subjective No events overnight Review of Systems Review of Systems: CONST: Negative for fever, body aches and chills. HENT: Negative for neck pain/stiffness, headache, congestion, sore throat, s welling. EYES: Negative for discharge/pain or vision changes. RESP: Negative for cough/hemoptysis and shortness of breath. CV: + chest pain, difficulty breathing, palpitations. ABD: Negative pain, nausea, vomiting. : Negative increase frequency, dysuria, blood in urine or stool. MUSC: Negative for muscle aches, edema. SKIN: Negative rash, lesions/sores. NEURO: Negative headache, dizziness, weakness. Physical Exam Physical Exam: GENERAL APPEARANCE NAD, activity normal for age, well developed/ well nourished, no cyanosis, pallor, or diaphoresis. EYES lids/conjunctiva normal. EARS/NOSE/THROAT Mucous membranes moist, nares normal, lips/teeth normal uvula midline without oral pharyngeal erythema, exudate or swelling TMs normal bilaterally. No lymphangitis/lymphedema. HEAD/NECK normocephalic atraumatic, no facial trauma, neck is supple. RESPIRATORY respiratory effort normal, speaks in full sentences, no tripod position, no accessory muscle use. Lungs clear to auscultation without rhonchi, wheezes, rales CARDIAC Regular rate and rhythm, no edema. ABDOMINAL Soft, ND/NT. No evidence of fluid wave. No pulsatile masses on exam, rebound tenderness, Addison sign or pain over Mcburney's point. MUSCLES/EXTREMITIES No abnormal range of motion, no swelling. SKIN Warm, pink and dry. No rashes, dermatoses, petechiae or lesions. NEUROLOGICAL Speech is clear and appropriate. Normal level of consciousness. Gait and coordination are normal. 5/5 strength in all extremities. PSYCH Normal mood and affect. Judgement/competence is appropriate Results & Data Results & Data Vital Signs (Past 12 Hours) Vital Signs Temp Pulse Pulse Resp BP Pulse Ox O2 Del Method 04/07/25 07:48 36.6 C 82 16 132/73 94 Room Air 04/07/25 07:11 59 L 04/07/25 03:11 36.5 C 70 16 134/73 95 Room Air 04/06/25 23:10 36.6 C 60 16 130/81 95 Room Air 04/06/25 23:00 61 PG Care Time/CCT Total # of Minutes Spent Total Time Spent with Patient: Total time spent is greater than 50% in coordination of care (as documented) at patient's floor/unit and/or counseling patient: Coding Level of Care Code 06986 SUB INP/OBS CARE 2/35MIN Diagnoses Chest pain R07.9 Hypertension I10
[2025-04-07] MEDS: ATROPINE SULFATE 0.1 MG/ML 10ML SYR IV ONE (10:05)
[2025-04-07] MEDS: ASPIRIN 81 MG ECTAB PO SCH (10:23)
[2025-04-07] MEDS: INDAPAMIDE 1.25 MG TAB PO SCH (10:23)
[2025-04-07] MEDS: CYANOCOBALAMIN (B-12) 500 MCG TABLET PO SCH (10:23)
--- NOTE | 2025-04-07 13:31 | XCELERA ---
[id number] [id number]
[2025-04-07 14:46] VITALS: BP 123/78; TEMP 98.1; O2SAT 94
--- NOTE | 2025-04-07 14:55 | Discharge Summary ---
Discharge Summary Date of Service April 07, 2025 Principal Dx & Hospital Course #1 = Principal Diagnosis (1) Chest pain: -tele -troponin x3 -asa, metoprolol, statin -echo -cardiology consult appreciated -stress echo negative -patient asymptomatic (2) Hypertension: -metoprolol Plan -heparin SQ for DVT px Admission HPI Per Admitting Provider Pt is a 69 y/o male with pmh of HTN who presents with chest pain. The pain has been intermittent for the past 6 weeks. Pt also feels SOB during the episodes. In the ER his EKG was sinus bradycardia at 59bpm, and his troponin were negative. His CXR showed no acute disease. Pt is being admitted for further evaluation of his chest pain with echo and cardiology consult. Discharge Exam GENERAL APPEARANCE NAD, activity normal for age, well developed/ well nourished, no cyanosis, pallor, or diaphoresis. EYES lids/conjunctiva normal. EARS/NOSE/THROAT Mucous membranes moist, nares normal, lips/teeth normal uvula midline without oral pharyngeal erythema, exudate or swelling TMs normal bilaterally. No lymphangitis/lymphedema. HEAD/NECK normocephalic atraumatic, no facial trauma, neck is supple. RESPIRATORY respiratory effort normal, speaks in full sentences, no tripod position, no accessory muscle use. Lungs clear to auscultation without rhonchi, wheezes, rales CARDIAC Regular rate and rhythm, no edema. ABDOMINAL Soft, ND/NT. No evidence of fluid wave. No pulsatile masses on exam, rebound tenderness, Addison sign or pain over Mcburney's point. MUSCLES/EXTREMITIES No abnormal range of motion, no swelling. SKIN Warm, pink and dry. No rashes, dermatoses, petechiae or lesions. NEUROLOGICAL Speech is clear and appropriate. Normal level of consciousness. Gait and coordination are normal. 5/5 strength in all extremities. PSYCH Normal mood and affect. Judgement/competence is appropriate Discharge Plan Discharge Items Patient Disposition: Home - Self-Care Reason For Visit: CHEST PAIN Discharge Diagnosis: Atypical chest pain Condition on Discharge: Fair Activity: Resume your previous activity Non-emergency contact: Primary Care Provider Call non-emergency contact if: you have any medication questions Follow-up/Referrals: Radha Vang MD [Primary Care Provider] - Diet: Regular Addtl Attending Provider Instructions: Follow up with cardiology in 2 weeks Pending Studies at Discharge: No Stand-Alone Forms: My [facility] TAKO, Smoking Cessation Medications and DC Order Prescriptions: Continued sildenafil [Viagra] 50 mg tablet 50 mg PO DAILY PRN (Reason: sexual activity) Qty: 20 6RF Rx Instructions: Administer 1 hour prior to intercourse on empty stomach. Max dose is 100 mg cholecalciferol (vitamin D3) 10 mcg (400 unit) tablet 10 mcg PO DAILY loratadine [Claritin] 10 mg tablet 10 mg PO DAILY PRN (Reason: as needed) triamcinolone acetonide [Nasacort] 55 mcg aerosol,spray 2 spray INTNAS DAILY PRN (Reason: Nasal Congestion) Rx Instructions: administer into each nostril cyanocobalamin (vitamin B-12) 1,000 mcg capsule 1,000 mcg PO DAILY Qty: 30 0RF Tylenol Extra Strength 500 mg powder in packet 500 mg PO Q6H PRN (Reason: Pain) rifampin 300 mg capsule 300 mg PO BID biotin 5 mg tablet 5 mg PO DAILY amoxicillin-pot clavulanate 875-125 mg tablet 1 tab PO BID allopurinol 100 mg tablet 100 mg PO BID indapamide 1.25 mg tablet 1.25 mg PO QAM Discharge Orders: Discharge Order (Routine); Ordered 04/07/25 Ordered By: Andrew Sheets Admission Data Admit Date/Time: 04/06/25 13:41 Attending Provider: Andrew Sheets Admit Provider: Andrew Sheets Primary Care Provider: Radha Vang Other Providers: Luca Mcgraw; Andrew Sheets Hospital Stay Data Consultations 04/06/25 13:40 Consult Cardiology Routine 04/06/25 13:44 ED Decision to Admit Stat Pending Results Patient Have Any Pending Studies at Discharge: No Discharge Instructions Given to Patient (Per Discharging Provider) Follow up with cardiology in 2 weeks Total Time Total Time Spent Total Time Spent (In Minutes): 50 Coding Level of Care Code 70112 INP/OBS DISCH >30 MIN Diagnoses Chest pain R07.9 Hypertension I10
[2025-04-07 15:02] VITALS: PULSE 52
--- NOTE | 2025-04-08 05:59 | Electrocardiogram Report ---
Test Reason : Blood Pressure : */* mmHG Vent. Rate : 59 BPM Atrial Rate : 59 BPM P-R Int : 208 ms QRS Dur : 100 ms QT Int : 392 ms P-R-T Axes : 10 -36 22 degrees QTcB Int : 388 ms Sinus bradycardia with sinus arrhythmia with 1st degree A-V block Left axis deviation Septal infarct , age undetermined Abnormal ECG When compared with ECG of 10-May-2017 14:39, QRS axis Shifted left Confirmed by Luca Mcgraw ([id number]) on 04/08/2025 5:59:03 AM Referred By: Confirmed By: Luca Mcgraw
--- NOTE | 2025-04-08 05:59 | Electrocardiogram Report ---
Test Reason : Blood Pressure : */* mmHG Vent. Rate : 59 BPM Atrial Rate : 59 BPM P-R Int : 226 ms QRS Dur : 96 ms QT Int : 402 ms P-R-T Axes : 16 -28 6 degrees QTcB Int : 397 ms Sinus bradycardia with 1st degree A-V block Otherwise normal ECG When compared with ECG of 06-Apr-2025 11:46, No significant change Confirmed by Luca Mcgraw ([id number]) on 04/08/2025 5:59:30 AM Referred By: REFERRED SELF Confirmed By: Luca Mcgraw
== END 2025-04-07 15:15 | disposition home or self-care (01) ==
LOC: ED 11:33 → 2W 11:33